=== PATIENT | female | born 1960 | race African-American/Black ===

== ENCOUNTER 2019-06-19 11:38 | Emergency (ER) | payer MEDICAID, MEDICARE ==
[~2019-06-19] VITALS: Ht 165.1 cm; Wt 61.0 kg
[2019-06-19] MEDS ORDERED: QUET100T PO (12:34)
[2019-06-19] MEDS ORDERED: FERR220S12 PO (12:34)
[2019-06-19] MEDS ORDERED: BENZ2AMP3 IJ (12:34)
[2019-06-19 16:20] VITALS: BP 140/74
== END 2019-06-19 16:20 | disposition home or self-care (01) ==
LOC: ER 12:41
DX: F32.9 Major depressive disorder, single episode, unspecified (principal); D64.9 Anemia, unspecified; Z88.8 Allergy status to other drugs, medicaments and biological substances; Z88.1 Allergy status to other antibiotic agents; Z79.899 Other long term (current) drug therapy
CPT/HCPCS: 99282; 99283